=== PATIENT | male | born 1965 | race Caucasian/White ===

== ENCOUNTER 2016-11-02 08:45 | Emergency (ER) | payer MEDICAID ==
[~2016-11-02] VITALS: Ht 172.7 cm; Wt 78.0 kg
[2016-11-02] MEDS ORDERED: HYDROCODONE/ACETAMINOPHEN 5-325 MG TABLET PO ONE (09:15)
[2016-11-02] MEDS ORDERED: LIDOCAINE HCL/PF 1% 2 ML VIAL IM ONE (09:15)
[2016-11-02] MEDS ORDERED: CefTRIAXone SODIUM 1 GM/VIAL IM ONE (09:15)
[2016-11-02 09:28] LABS: BASOPHILS # (AUTO) 0.07 K/uL (0.00-0.20); BASOPHILS % (AUTO) 0.9 % (0.0-2.0); EOSINOPHILS # (AUTO) 0.35 K/uL (0.00-0.70); EOSINOPHILS % (AUTO) 4.53 % (1.0-6.0); HEMATOCRIT 43.9 % (41-53); HEMOGLOBIN 14.5 g/dL (13.5-17.5); LYMPHOCYTES # (AUTO) 2.6 K/uL (1.0-4.8); LYMPHOCYTES % (AUTO) 33.1 % (22.0-44.0); MEAN CORPUSCULAR HEMOGLOBIN 28.6 pg (26.0-34.0); MEAN CORPUSCULAR VOLUME 87 fL (80-100); MONOCYTES % (AUTO) 12.7 % (2.0-9.0); NEUTROPHILS # (AUTO) 3.8 K/uL (1.8-7.7); NEUTROPHILS % (AUTO) 48.9 % (40.0-70.0); PLATELET COUNT (AUTO) 153 K/uL (150-450); RED BLOOD CELL COUNT(AUTO) 5.06 MIL/uL (4.50-5.90); RED CELL DISTRIBUTION WIDTH 17.6 % (11.5-14.5); WHITE BLOOD COUNT (AUTO) 7.7 K/uL (4.5-11.0)
[2016-11-02 09:30] LABS: ANION GAP 7 mmol/L (8-16); CARBON DIOXIDE 33 mmol/L (22-29); CHLORIDE 99 mmol/L (98-107); GLOMERULAR FILTR. RATE CALC > 60 mL/min (>60); SODIUM SERUM 139 mmol/L (136-145); UREA NITROGEN, BLOOD 18 mg/dL (7-18)
[2016-11-02 09:36] LABS: ALANINE AMINOTRANSFERASE 73 U/L (12-78); ALBUMIN 3.5 g/dL (3.4-5.0); ASPARTATE AMINOTRANSFERASE 65 U/L (15-37); BILIRUBIN,TOTAL 0.5 mg/dL (0.1-1.0); PROTHROMBIN TIME 10.8 SEC (9.4-11.6); TOTAL PROTEIN, SERUM 7.9 g/dL (6.4-8.2)
[2016-11-02] MEDS ORDERED: HydrALAZINE HCL 20 MG/ML VIAL IVP ONE (10:15)
[2016-11-02 10:45] VITALS: BP 153/107
[2016-11-02 10:47] LABS: RBC MORPHOLOGY COMMENT ABNORMAL RBC MORPH
== END 2016-11-02 11:06 | disposition home or self-care (01) ==
LOC: EMS 08:46
DX: I97.638 Postprocedural hematoma of a circulatory system organ or structure following other circulatory system procedure (principal); Z95.0 Presence of cardiac pacemaker; I10 Essential (primary) hypertension; I50.9 Heart failure, unspecified; B19.20 Unspecified viral hepatitis C without hepatic coma
CPT/HCPCS: 36415; 71010; 80053; 85025; 85610; 85730; 96372; 96374; 99285; J0360; J0696; J3490

== ENCOUNTER 2020-12-21 12:23 | Emergency (ER) | payer MEDICARE, OTHER ==
[~2020-12-21] VITALS: Ht 172.7 cm; Wt 67.3 kg
[~2020-12-21 12:23] MED LIST: BUME1TAB34 PO; FURO40 PO; RISP0.5T39 PO
[2020-12-21 13:48] LABS: BASOPHILS % (AUTO) 0.9 % (0.0-2.0); EOSINOPHILS % (AUTO) 2.2 % (1.0-6.0); HEMATOCRIT 40.5 % (41-53); LYMPHOCYTES # (AUTO) 1.3 K/uL (1.0-4.8); LYMPHOCYTES % (AUTO) 30.7 % (22.0-44.0); MEAN CORPUSCULAR HEMOGLOBIN 28.7 pg (26.0-34.0); MEAN CORPUSCULAR HGB CONC 32.2 G/dL (31.0-37.0); MEAN CORPUSCULAR VOLUME 89 fL (80-100); MONOCYTES # (AUTO) 0.7 K/uL (0.1-1.0); NEUTROPHILS # (AUTO) 2.1 K/uL (1.8-7.7); NEUTROPHILS % (AUTO) 49.2 % (40.0-70.0); PLATELET COUNT (AUTO) 146 K/uL (150-450); RED BLOOD CELL COUNT(AUTO) 4.54 MIL/uL (4.50-5.90); RED CELL DISTRIBUTION WIDTH 15.9 % (11.5-14.5)
[2020-12-21 13:57] LABS: ANION GAP 13 mmol/L (8-16); CALCIUM, TOTAL 7.1 mg/dL (8.8-10.5); CARBON DIOXIDE 21 mmol/L (22-29); CHLORIDE 109 mmol/L (98-107); CREATININE 1.09 mg/dL (0.60-1.30); GLOMERULAR FILTR. RATE CALC > 60 mL/min (>60); GLUCOSE,RANDOM 71 mg/dL (70-110); POTASSIUM 3.2 mmol/L (3.5-5.1); SODIUM SERUM 143 mmol/L (136-145); UREA NITROGEN, BLOOD 30 mg/dL (7-18)
[2020-12-21 13:59] LABS: INR 1.3 (0.9-1.1); PROTHROMBIN TIME 13.5 SEC (9.4-11.6)
[2020-12-21 14:19] LABS: B-TYPE NATRIURETIC PEPTIDE 3500 pg/mL (0-100)
[2020-12-21 14:21] LABS: ALANINE AMINOTRANSFERASE 43 U/L (12-78); ALBUMIN 2.9 g/dL (3.4-5.0); ALKALINE PHOSPHATASE 72 U/L (46-116); ASPARTATE AMINOTRANSFERASE 61 U/L (15-37); BILIRUBIN,TOTAL 1.4 mg/dL (0.1-1.0); CREATINE KINASE, TOTAL ONLY 243 U/L (39-308); TOTAL PROTEIN, SERUM 6.6 g/dL (6.4-8.2)
[2020-12-21 17:54] LABS: COVID AG,FIA SOURCE NASOPHARYNGEAL
[2020-12-21] MEDS ORDERED: ASPIRIN 325 MG TABLET PO ONE (19:30)
[2020-12-21] MEDS ORDERED: NITROGLYCERIN 2% (1 GM=INCH) PACKET TP ONE (19:30)
[2020-12-21 19:42] VITALS: BP 149/88
[2020-12-21] MEDS ORDERED: FUROSEMIDE 20 MG TABLET PO ONE (20:15)
[2020-12-21] MEDS ORDERED: NICOTINE 14 MG/24 HOUR PATCH TD ONE (20:15)
[2020-12-21] MEDS ORDERED: POTASSIUM CHLORIDE 10% 40 MEQ/30 ML LIQUID UDCUP PO ONE (20:15)
[2020-12-21 21:00] LABS: APPEARANCE,URINE CLEAR (CLEAR); BILIRUBIN,URINE PRELIM. POSITIVE (NEGATIVE); GLUCOSE, URINE (UA) NEGATIVE (NEGATIVE); KETONES,URINE NEGATIVE (NEGATIVE); LEUKOCYTE ESTERASE ,URINE NEGATIVE (NEGATIVE); NITRATE,URINE NEGATIVE (NEGATIVE); OCCULT BLOOD,URINE MODERATE (NEGATIVE); PH,URINE 5.5 (5.0-8.0); PROTEIN,URINE SEE CONFIRM (NEGATIVE)
[2020-12-21 21:10] LABS: SULFOSALICYLIC ACID,URINE 1+ (Negative)
[2020-12-21 21:11] LABS: RBC,URINE 0-2 /HPF (0-2)
[2020-12-21 21:12] LABS: BACTERIA,URINE None Seen /HPF (None Seen); SQUAMOUS EPITHELIAL CELL,UR Few /LPF (None Seen); WBC,URINE 0-2 /HPF (0-5)
== END 2020-12-21 22:09 | disposition short-term general hospital (02) ==
LOC: EMS 12:28
DX: I11.0 Hypertensive heart disease with heart failure (principal); I50.9 Heart failure, unspecified; F17.210 Nicotine dependence, cigarettes, uncomplicated; E11.9 Type 2 diabetes mellitus without complications; I42.9 Cardiomyopathy, unspecified; E87.6 Hypokalemia; R77.8 Other specified abnormalities of plasma proteins; E44.0 Moderate protein-calorie malnutrition; Z20.822 Contact with and (suspected) exposure to COVID-19
CPT/HCPCS: 71045; 80053; 81001; 81002; 82550; 82962; 83880; 84484; 85025; 85610; 85730; 87426; 93005; 99285; 36415-L1; 36415-TC

== ENCOUNTER 2020-12-25 23:35 | Emergency (ER) | payer MEDICARE, OTHER ==
[~2020-12-25] VITALS: Ht 165.1 cm; Wt 75.0 kg
[2020-12-26 04:00] VITALS: BP 135/78
== END 2020-12-26 05:03 | disposition home or self-care (01) ==
LOC: EMS 23:36
DX: Z76.0 Encounter for issue of repeat prescription (principal); I11.0 Hypertensive heart disease with heart failure; I50.9 Heart failure, unspecified; E11.9 Type 2 diabetes mellitus without complications; F17.210 Nicotine dependence, cigarettes, uncomplicated; Z95.0 Presence of cardiac pacemaker
CPT/HCPCS: 99281; Z7502

== ENCOUNTER 2021-01-04 23:26 | Emergency (ER) | payer MEDICARE, OTHER ==
[~2021-01-04] VITALS: Ht 172.7 cm; Wt 65.9 kg
[2021-01-05 00:46] LABS: BASOPHILS % (AUTO) 1.3 % (0.0-2.0); EOSINOPHILS % (AUTO) 3.2 % (1.0-6.0); HEMATOCRIT 38.3 % (41-53); HEMOGLOBIN 12.1 g/dL (13.5-17.5); LYMPHOCYTES # (AUTO) 1.7 K/uL (1.0-4.8); LYMPHOCYTES % (AUTO) 33.4 % (22.0-44.0); MEAN CORPUSCULAR HEMOGLOBIN 27.9 pg (26.0-34.0); MEAN CORPUSCULAR HGB CONC 31.5 G/dL (31.0-37.0); MEAN CORPUSCULAR VOLUME 89 fL (80-100); MONOCYTES # (AUTO) 0.8 K/uL (0.1-1.0); MONOCYTES % (AUTO) 16.3 % (2.0-9.0); NEUTROPHILS # (AUTO) 2.3 K/uL (1.8-7.7); NEUTROPHILS % (AUTO) 45.8 % (40.0-70.0); PLATELET COUNT (AUTO) 119 K/uL (150-450); RED BLOOD CELL COUNT(AUTO) 4.33 MIL/uL (4.50-5.90); RED CELL DISTRIBUTION WIDTH 15.8 % (11.5-14.5)
[2021-01-05 00:55] LABS: CALCIUM, TOTAL 8.4 mg/dL (8.8-10.5); CREATININE 1.63 mg/dL (0.60-1.30); POTASSIUM 3.8 mmol/L (3.5-5.1)
[2021-01-05 01:00] LABS: ALBUMIN 3.3 g/dL (3.4-5.0); BILIRUBIN,TOTAL 1.3 mg/dL (0.1-1.0); INR 1.3 (0.9-1.1); PROTHROMBIN TIME 13.2 SEC (9.4-11.6); TOTAL PROTEIN, SERUM 7.2 g/dL (6.4-8.2)
[2021-01-05] MEDS ORDERED: FUROSEMIDE 40 MG/4 ML VIAL IVP ONE (01:30)
[2021-01-05 02:17] LABS: COVID AG,FIA SOURCE NASAL SWAB
[2021-01-05 02:21] LABS: APPEARANCE,URINE CLEAR (CLEAR); BILIRUBIN,URINE NEGATIVE (NEGATIVE); GLUCOSE, URINE (UA) NEGATIVE (NEGATIVE); KETONES,URINE NEGATIVE (NEGATIVE); LEUKOCYTE ESTERASE ,URINE NEGATIVE (NEGATIVE); NITRATE,URINE NEGATIVE (NEGATIVE); OCCULT BLOOD,URINE NEGATIVE (NEGATIVE); PH,URINE 5.5 (5.0-8.0); PROTEIN,URINE NEGATIVE (NEGATIVE)
[2021-01-05 04:15] VITALS: BP 131/87
== END 2021-01-05 05:15 | disposition short-term general hospital (02) ==
LOC: EMS 23:34
DX: R77.8 Other specified abnormalities of plasma proteins (principal); R94.31 Abnormal electrocardiogram [ECG] [EKG]; I11.0 Hypertensive heart disease with heart failure; I50.9 Heart failure, unspecified; E11.9 Type 2 diabetes mellitus without complications; F17.210 Nicotine dependence, cigarettes, uncomplicated; Z20.822 Contact with and (suspected) exposure to COVID-19; Z95.0 Presence of cardiac pacemaker; Z79.899 Other long term (current) drug therapy
CPT/HCPCS: 36415; 71045; 80053; 81003; 82962; 83880; 84484; 85025; 85610; 85730; 87426; 93005; 96374; 99285; J1940